=== PATIENT | male | born 1990 | race Two or more races ===

== ENCOUNTER → 2021-09-06 | Outpatient (REF) | payer BC, OTHER | LOC: M SMT 13:10 | PROVIDERS: ATTEND Urology | DX: Z30.2 Encounter for sterilization (principal) ==

== ENCOUNTER → 2022-01-05 | Outpatient (REF) | payer BC, OTHER ==
[2022-01-05 12:11] LABS: SEMEN APPEARANCE OPAQUE (OPAQUE); SEMEN VISCOSITY LIQUID (LIQUID); SEMEN VOLUME 4.1 ml (2.0-5.0); SEMEN pH 8.5 (7.0-8.0); WBC CONCENTRATION >1 M/ml (<=1 M/ml)
== END ==
LOC: M SMT 11:48
PROVIDERS: ATTEND Urology
DX: Z30.2 Encounter for sterilization (principal)